=== PATIENT | female | born 1985 | race Caucasian/White ===

== ENCOUNTER 2018-03-04 10:29 | Emergency (ER) | payer OTHER ==
[~2018-03-04] VITALS: Ht 177.8 cm; Wt 59.0 kg
[2018-03-04 10:40] VITALS: BP_SYST 90
[2018-03-04 11:39] VITALS: BP_SYST 110
== END 2018-03-04 11:39 | disposition home or self-care (01) ==
LOC: SED 10:29
DX: J40 Bronchitis, not specified as acute or chronic (principal)
CPT/HCPCS: 99283